=== PATIENT | female | born 1955 | race Caucasian/White ===

== ENCOUNTER 2016-09-02 19:05 | Emergency (ER) | payer OTHER ==
[~2016-09-02 19:05] MED LIST: AMITRIPTYLINE100 MG PO; ATROVENT2.5 ML NEB; COZAAR25 MG PO; CYANOCOBAL1000 MCG/1 INJ; GABAPENTIN600 MG PO; HCTZ25 MG PO; LEVAQUIN500 MG PO; LOPRESSOR50 MG PO; MIRAPEX0.125 MG PO; NICODERM 21MG PA1 EA TD; OMEPRAZOLE20 M1 PO; PLAVIX75 MG PO; PRAVACHOL40 MG PO; PREDNISONE5 MG PO; ZYLOPRIM100 MG PO
[2016-09-02 22:56] LABS: BASO % 0.2 % (0.1-1.2); GRAN % 72.6 % (34.0-71.1); HEMATOCRIT 40.6 % (34-45); HEMOGLOBIN 13.4 g/dL (11.2-15.7); LYMPH # 2.3 10_X3_uL (1.2-3.7); LYMPH % 20.7 % (19.3-51.7); MEAN CORPUSCULAR HEMOGLOBIN 30.2 pg (27.0-33.0); MEAN CORPUSCULAR VOLUME 91.4 fL (79-95); MEAN PLATELET VOLUME 9.4 fl (7.5-11.5); MONO # 0.7 10_X3_uL (0.2-0.9); MONO % 6.5 % (4.7-12.5); PLATELET COUNT 223 x10_3/uL (182-369); RED BLOOD COUNT 4.44 x10_6/uL (3.9-5.2); RED CELL DISTRIBUTION WIDTH 12.5 % (11.7-14.4)
[2016-09-02 23:09] LABS: CALCIUM 9.6 mg/dL (8.7-10.7); CREATININE 1.1 mg/dL (0.6-1.3); POTASSIUM 3.8 mmol/L (3.5-5.1)
== END 2016-09-03 00:25 | disposition home or self-care (01) ==
LOC: ER 19:05
PROVIDERS: Emergency Medicine
DX: J01.90 Acute sinusitis, unspecified (principal); R51 Headache; R06.02 Shortness of breath; R05 Cough; M25.50 Pain in unspecified joint; E11.9 Type 2 diabetes mellitus without complications; J44.9 Chronic obstructive pulmonary disease, unspecified; I10 Essential (primary) hypertension; Z98.51 Tubal ligation status; Z88.0 Allergy status to penicillin; Z88.5 Allergy status to narcotic agent; Z87.891 Personal history of nicotine dependence; Z79.899 Other long term (current) drug therapy
CPT/HCPCS: 36415; 71020; 80048; 85025; 94664; 99283-25